=== PATIENT | female | born 1985 | race Caucasian/White ===

== ENCOUNTER 2017-08-11 18:26 | Emergency (ER) | payer MEDICAID ==
[~2017-08-11] VITALS: Ht 167.6 cm; Wt 73.5 kg
--- NOTE | 2017-08-11 19:04 | NUR ---
PATIENT WAS SEEN BY MD FOR SKIN SWELLING AND REDNESS ON TOE. DC, RX AND FOLLOW UP INSTRUCTIONS GIVEN AND EXPLAINED TO PATIENT WHO STATES SHE UNDERSTANDS ALL INSTRUCTIONS.
== END 2017-08-11 19:08 | disposition home or self-care (01) ==
LOC: ER 18:26
DX: L03.114 Cellulitis of left upper limb (principal); L03.113 Cellulitis of right upper limb; Z88.1 Allergy status to other antibiotic agents
CPT/HCPCS: A4663